=== PATIENT | male | born 1955 | race Two or more races ===

== ENCOUNTER 2017-02-08 20:41 | Emergency (ER) | payer OTHER ==
[~2017-02-08] VITALS: Ht 172.7 cm; Wt 91.6 kg
--- NOTE | 2017-02-08 20:45 | NUR ---
To bed 6 a 61 yo male bibra with c/o "HAD 1 BOTTLE OF BEER; 2 SYNCOPAL EPISODES AT HOME; BP 90/56 ON SCENE." Upon arrival to er, patient is aaox4, 19 102/59, nsr on the monitor, denies dizziness, no n/v. placed supine in bed. vs monitoring. gowned. safety and comfort measures rendered.
--- NOTE | 2017-02-08 20:50 | NUR ---
Dr Jurado at bedside for eval.
[2017-02-08] MEDS ORDERED: IV NS 0.9% 1,000 ML BAG IV ONE (21:00)
--- NOTE | 2017-02-08 21:00 | NUR ---
started a saline lock on the left forearm g20.
[2017-02-08] MEDS ORDERED: IV SET PRIMARY 1 EA INFUS.SET MC ONE ×2 (21:11)
[2017-02-08] MEDS ORDERED: IV NS 0.9% 1,000 ML ONE (21:11)
--- NOTE | 2017-02-08 21:12 | NUR ---
superintendent radio communications at bedside for xr.
[2017-02-08 21:20] LABS: BASOPHILS # (AUTO) 0.1 /CMM (0.0-0.2); BASOPHILS % (AUTO) 0.7 % (0.0-2.0); EOSINOPHILS # (AUTO) 0.1 /CMM (0.0-0.7); HEMATOCRIT 48 % (39-51); LYMPHOCYTES # (AUTO) 1.7 /CMM (0.8-4.8); LYMPHOCYTES % (AUTO) 18.8 % (20.0-44.0); MEAN CORPUSCULAR HEMOGLOBIN 30 PG (26.0-33.0); MEAN CORPUSCULAR HGB CONC 34 g/dl (31.0-36.0); MEAN CORPUSCULAR VOLUME 90 fL (80-96); MONOCYTES # (AUTO) 0.5 /CMM (0.1-1.30); MONOCYTES % (AUTO) 5.6 % (2.0-12.0); NEUTROPHILS # (AUTO) 6.7 /CMM (1.8-8.9); NEUTROPHILS % (AUTO) 73.9 % (43.0-81.0); PLATELET COUNT (AUTO) 227 /CMM (150-450); RED BLOOD CELL COUNT(AUTO) 5.29 MIL/uL (4.5-6.0); WHITE BLOOD COUNT (AUTO) 9.1 K/uL (4.3-11.0)
[2017-02-08 21:24] LABS: CALCIUM, SERUM 9.3 mg/dL (8.5-10.1); CARBON DIOXIDE 29 mmol/L (21-32); CHLORIDE 104 mmol/L (98-107); CREATININE 1.3 mg/dL (0.6-1.3); GLUCOSE 105 mg/dL (74-106); INR 1.03 (0.87-1.13); POTASSIUM 3.3 mmol/L (3.5-5.1); PROTHROMBIN TIME 10.7 SECS (9.5-12.7); SODIUM SERUM 143 mmol/L (136-145); UREA NITROGEN, BLOOD 20 mg/dL (7-18)
[2017-02-08 21:28] LABS: TROPONIN I < 0.017 ng/mL (0.00-0.056)
--- NOTE | 2017-02-08 21:30 | NUR ---
BACK FROM CT.
[2017-02-08 21:38] LABS: APPEARANCE,URINE Clear (CLEAR); BILIRUBIN,URINE SMALL (NEGATIVE); BLOOD, URINE Negative Ery/uL (NEGATIVE); COLOR,URINE Yellow (YELLOW); KETONES,URINE Trace (NEGATIVE); LEUKOCYTE ESTERASE ,URINE Trace (NEGATIVE); NITRITE, URINE Negative (NEGATIVE); PROTEIN,URINE Trace mg/dl (NEGATIVE); UGLUCOSE Negative (NEGATIVE)
[2017-02-08 21:46] LABS: RBC,URINE 0-2 /HPF (0-2)
[2017-02-08 21:47] LABS: BACTERIA,URINE None seen /HPF (None Seen); HYALINE CASTS, URINE Moderate /LPF (None Seen); SQUAMOUS EPITHELIAL CELL,UR Few /HPF (None Seen)
--- NOTE | 2017-02-08 22:18 | NUR ---
ACCESSED WITH TURNER NEEDLE G20 THE PICC LINE PORT, GOOD BLOOD RETURN NOTED, FLUSHED NS WITH EASE. NS 1L BOLUS ONGOING PER DR FUCHS.
--- NOTE | 2017-02-08 22:22 | NUR ---
IV removed. Catheter intact and site benign. Pressure and 4x4 applied to site. No bleeding noted. Patient discharged to home in stable condition. Written and verbal after care instructions given. Patient verbalizes understanding of instruction. Patient is ambulatory with steady gait, accompanied by family home. No further complaints.
[2017-02-08 22:23] VITALS: BP 111/67
== END 2017-02-08 22:24 | disposition home or self-care (01) ==
LOC: ER 20:42
DX: R55 Syncope and collapse (principal); I10 Essential (primary) hypertension
CPT/HCPCS: 36415; 70450-TC; 71010-TC; 80048-TC; 81000-TC; 82962-TC; 84484-TC; 85025-TC; 85730-TC; A4606; J7030; Z7610